=== PATIENT | female | born 1980 | race Caucasian/White ===

== ENCOUNTER 2017-09-16 10:49 | Emergency (ER) | payer OTHER ==
[~2017-09-16] VITALS: Ht 160 cm; Wt 66.3 kg
[2017-09-16 10:50] VITALS: TEMP 36.7; Ht 160 cm; Wt 66.3 kg
[2017-09-16] MEDS ORDERED: MTR800 PO (11:08)
[2017-09-16] MEDS ORDERED: AMOX500T PO (11:08)
[2017-09-16] MEDS ORDERED: AMPICILLIN/SULBACTAM SOD INJ 3,000 MG in SODIUM CHLORIDE 0.9% 100ML 100 ML IV STA (11:14)
[2017-09-16] MEDS ORDERED: KETOROLAC TROMETHAMINE 30 MG/ML VIAL IV STA (11:26)
[2017-09-16 11:42] LABS: BASO % 0.2 %; BASO ABS # 0.02 K/uL (0-0.2); COMPLETE YES; EOS % 0.3 %; HEMATOCRIT 45.8 % (37-47); IG% 0.2 %; LYMPH % 4.9 %; LYMPH ABS # 0.44 K/uL (1.2-3.4); MEAN CELL VOLUME 92.2 fL (80-100); MEAN CORPUSCULAR HEMOGLOBIN 32.4 pg (25-34); MEAN CORPUSCULAR HGB CONC 35.2 g/dl (32-36); MEAN PLATELET VOLUME 9.9 fL (7.4-10.4); MONO % 5.7 %; NEUT % 88.7 %; PLATELET COUNT 146 K/uL (130-400); RED BLOOD COUNT 4.97 M/uL (4.2-5.4); WHITE BLOOD COUNT 9.01 K/uL (4.8-10.8)
[2017-09-16 12:00] LABS: BUN/CREATININE RATIO 13.9 (10-20); CALCIUM 9.1 mg/dl (8.5-10.1); CREATININE 0.68 mg/dl (0.60-1.20); POTASSIUM 3.5 mmol/L (3.5-5.1)
[2017-09-16 13:09] VITALS: BP 119/72; PULSE 80; O2SAT 97
--- NOTE | 2017-09-16 15:19 | EMERGENCY ROOM VISIT NOTE ---
History First contact with patient: 11:05 Chief Complaint: DENTAL PAIN Stated Complaint: ABCESS TOOTH, SEVERE PAIN, SWELLING SPEADING Nursing Triage Summary: started on abx 1 day ago for dental abcess today swelling seems to have increased History of Present Illness The patient is a 36 year old female who presents to the Emergency Room with complaints of progressively worsening right lower jaw swelling. The patient reports that she noticed dental pain on Tuesday morning. She reports that she had a filling fall out several months ago, and never got it repaired. By Tuesday, she noticed worsening pain. Yesterday morning, she then started to develop swelling. She was seen at [facility] by Dr. Romero and provided a prescription for Augmentin 500 mg twice daily. The patient has taken 3 doses of the Augmentin, and reports that the swelling is worse. She also felt feverish yesterday. She did not check an oral temperature. She has taken Tylenol every 8-10 hours. The patient reports that the dentist told her to come to the emergency department with any progressively worsening swelling. The patient rates her discomfort a 5 out of 10. Review of Systems HEENT: Denies dizziness, visual problems, hearing loss, tinnitus. Denies difficulty swallowing or oral lesions. PULMONARY: Denies cough, shortness of breath, sputum production or hemoptysis. CARDIOVASCULAR: Denies chest pain, palpitations, dyspnea on exertion, orthopnea or peripheral edema. GASTROINTESTINAL: Denies diarrhea, constipation, nausea, vomiting, or abdominal pain. GENITOURINARY: Denies dysuria, frequency, urgency or nocturia. NEUROLOGIC: Denies history of epilepsy, CVA, TIA or chronic headaches. MUSCULOSKELETAL: Denies history of joint tenderness/swelling. SKIN: Denies rashes or lesions. PSYCHIATRIC: Denies history of depression or mental illness. ENDOCRINE: Denies history of diabetes or thyroid disorders. Past Medical/Surgical History Medical Problems: (1) Pneumonia Surgical Problems: (1) No history of previous surgery Family History FH: kidney disease Social History Smoking Status: Current Every Day Smoker Alcohol Use: occasionally Marital Status: single Housing Status: lives with roommate Occupation Status: employed Current/Historical Medications Scheduled Amoxicillin & Pot Clavulanate (Augmentin 500MG), 500 MG PO TID Scheduled PRN Ibuprofen (Ibuprofen), 800 MG PO Q8 PRN for Pain Physical Exam Vital Signs Date Time Temp Pulse Resp B/P (MAP) Pulse Ox O2 Delivery O2 Flow Rate FiO2 09/16/17 13:09 80 18 119/72 97 09/16/17 10:50 36.7 100 20 122/83 98 Room Air Physical Exam CONSTITUTIONAL: Healthy and well nourished. Alert and oriented X 3 with positive affect. She does not appear acutely ill or toxic, nor does she appear in any acute distress. HEENT: Normocephalic, atraumatic. Pupils equal, round and reactive. No facial erythema noted. OROPHARYNX: Examination shows notable right mandibular gingival erythema and edema without obvious pointing or focal fluctuance. The patient does have mild right submandibular edema. LYMPHATICS: Patient has mild right submandibular adenopathy. No cervical chain adenopathy. NECK: Full active range of motion without discomfort. RESPIRATORY: Clear to auscultation bilaterally with no wheezing, crackles, rhonchi or stridor. CARDIOVASCULAR: Regular rate and rhythm with no murmurs, rubs or gallops. INTEGUMENTARY: No rash or other significant dermatologic conditions noted. NEUROLOGIC: No focal neurologic deficits noted. Facial sensations are intact. Medical Decision & Procedures Laboratory Results 09/16/17 11:29 Red Blood Count 4.97, Mean Corpuscular Volume 92.2, Mean Corpuscular Hemoglobin 32.4, Mean Corpuscular Hemoglobin Concent 35.2, Mean Platelet Volume 9.9, Neutrophils (%) (Auto) 88.7, Lymphocytes (%) (Auto) 4.9, Monocytes (%) (Auto) 5.7, Eosinophils (%) (Auto) 0.3, Basophils (%) (Auto) 0.2, Neutrophils # (Auto) 7.99, Lymphocytes # (Auto) 0.44, Monocytes # (Auto) 0.51, Eosinophils # (Auto) 0.03, Basophils # (Auto) 0.02 09/16/17 11:29 Test 09/16/17 11:29 White Blood Count 9.01 K/uL (4.8-10.8) Red Blood Count 4.97 M/uL (4.2-5.4) Hemoglobin 16.1 g/dL (12.0-16.0) Hematocrit 45.8 % (37-47) Mean Corpuscular Volume 92.2 fL (80-100) Mean Corpuscular Hemoglobin 32.4 pg (25-34) Mean Corpuscular Hemoglobin Concent 35.2 g/dl (32-36) Platelet Count 146 K/uL (130-400) Mean Platelet Volume 9.9 fL (7.4-10.4) Neutrophils (%) (Auto) 88.7 % Lymphocytes (%) (Auto) 4.9 % Monocytes (%) (Auto) 5.7 % Eosinophils (%) (Auto) 0.3 % Basophils (%) (Auto) 0.2 % Neutrophils # (Auto) 7.99 K/uL (1.4-6.5) Lymphocytes # (Auto) 0.44 K/uL (1.2-3.4) Monocytes # (Auto) 0.51 K/uL (0.11-0.59) Eosinophils # (Auto) 0.03 K/uL (0-0.5) Basophils # (Auto) 0.02 K/uL (0-0.2) RDW Standard Deviation 42.8 fL (36.4-46.3) RDW Coefficient of Variation 12.8 % (11.5-14.5) Immature Granulocyte % (Auto) 0.2 % Immature Granulocyte # (Auto) 0.02 K/uL (0.00-0.02) Anion Gap 8.0 mmol/L (3-11) Est Creatinine Clear Calc Drug Dose 106.6 ml/min Estimated GFR () 132.3 Estimated GFR (Non- 114.1 BUN/Creatinine Ratio 13.9 (10-20) Calcium Level 9.1 mg/dl (8.5-10.1) The above labs were reviewed and were grossly normal. Medications Administered Medications (Trade) Dose Ordered Sig/Preeti Route Start Time Stop Time Status Last Admin Dose Admin Ampicillin Sodium/ Sulbactam Sodium 3000 mg/Sodium Chloride 108 ml @ 200 mls/hr NOW STAT IV 09/16/17 11:14 09/16/17 11:46 DC 09/16/17 11:38 200 MLS/HR Ketorolac Tromethamine (Toradol Inj) 30 mg NOW STAT IV 09/16/17 11:26 09/16/17 11:27 DC 09/16/17 11:43 30 MG ED Course Patient history and physical exam were performed. Nurse's notes were reviewed. Vital signs were reviewed. The patient is currently afebrile. Heart rate is 100 and triage. Recheck in the room shows a heart rate of 90. The patient is normotensive. Exam is consistent with a dental abscess. Because the symptoms are worsening, I did suggest checking labwork and administering IV antibiotics. The patient was in agreement. IV access was established, and labs were drawn. Labs were reviewed and were grossly normal. The patient was administered Toradol 30 mg IVP, and Unasyn 3 g IV infusion. The patient reported improvement of her pain. The patient was encouraged to continue with her Augmentin antibiotics. She may alternate ibuprofen and Tylenol for pain and fever control. She was instructed to return to the emergency department over the weekend for any progressively worsening swelling, difficulty swallowing, worsening fever or other concerning symptoms. The patient was happy with plan of care, and voiced understanding of all discharge instructions, rating her discomfort a 3 out of 10 at the time of discharge. Medical Decision [place] Drug Monitoring Program Search Results: patient reviewed within database, no issues identified Medication Reconcilliation Current Medication List: was personally reviewed by me Blood Pressure Screening Patient's blood pressure: Normal blood pressure Impression Primary Impression: Dental abscess Departure Information Referrals No Doctor, Assigned (PCP) Patient Instructions My [facility]
[2017-09-17] MEDS ORDERED: DOXY1LIQ PO (09:44)
[2017-09-17] MEDS ORDERED: ACET-1256 PO (09:44)
[2017-09-18] MEDS ORDERED: CLC150 PO (18:19)
[2017-09-18] MEDS ORDERED: LCTX PO (19:07)
== END 2017-09-16 13:10 | disposition home or self-care (01) ==
LOC: C.EDB 10:50 → C.EDD 13:10
DX: K04.7 Periapical abscess without sinus (principal); Z87.01 Personal history of pneumonia (recurrent); Z84.1 Family history of disorders of kidney and ureter; F17.210 Nicotine dependence, cigarettes, uncomplicated

== ENCOUNTER 2017-09-17 09:33 | Inpatient (IN) | payer OTHER ==
[~2017-09-17] VITALS: Ht 160 cm; Wt 66.4 kg
[~2017-09-17 09:33] MED LIST: AMOX500T PO; MTR800 PO
[2017-09-17] MEDS ORDERED: DOXY1LIQ PO (09:44)
[2017-09-17] MEDS ORDERED: ACET-1256 PO (09:44)
[2017-09-17] MEDS ORDERED: CLINDAMYCIN IV 900 MG in DEXTROSE 5% 100ML 100 ML IV ONE (10:00)
[2017-09-17] MEDS ORDERED: OPTIRAY 320 IV PRN (10:15)
[2017-09-17 10:39] LABS: ISTAT CREATININE 0.5 mg/dl (0.6-1.3); ISTAT HEMOGLOBIN 13.9 g/dl (12.0-16.0); ISTAT IONIZED CALCIUM 1.2 mmol/l (1.12-1.32)
[2017-09-17 10:39] LABS: BASO % 0.3 %; BASO ABS # 0.02 K/uL (0-0.2); COMPLETE YES; EOS % 0.5 %; HEMATOCRIT 44.6 % (37-47); IG% 0.4 %; LYMPH % 9.8 %; LYMPH ABS # 0.78 K/uL (1.2-3.4); MEAN CELL VOLUME 92.5 fL (80-100); MEAN CORPUSCULAR HEMOGLOBIN 32.4 pg (25-34); MEAN PLATELET VOLUME 10.2 fL (7.4-10.4); MONO % 14.2 %; NEUT % 74.8 %; PLATELET COUNT 168 K/uL (130-400); RED BLOOD COUNT 4.82 M/uL (4.2-5.4); WHITE BLOOD COUNT 7.96 K/uL (4.8-10.8)
--- NOTE | 2017-09-17 11:05 | DIAGNOSTIC IMAGING REPORT ---
CT neck with intravenous contrast HISTORY: Right jaw pain. EVAL ABSCESS TECHNIQUE: Multiaxial CT images of the neck performed following use of intravenous contrast. COMPARISON STUDY: None. FINDINGS: The visualized brain parenchyma and orbits are unremarkable. Mild mucosal thickening within the right maxillary sinus. The lung apices are clear. The thyroid gland, submandibular glands, and parotid glands enhance normally. Mild right submandibular lymphadenopathy which is likely reactive. Prevertebral soft tissues and the epiglottis are normal in thickness. There is mild leftward shift of the hypopharynx. However, the airway remains intact. The major mucosal airway surfaces are maintained. There is a 6 mm periapical lucency at ADA 30. Peripheral enhancing fluid collection along the lingual surface of the mandible at this location. This also contains a small focus of gas. This is consistent with an abscess and measures 2.5 x 1.1 cm. This is best seen on image 117. This results in mild mass effect on the right sublingual space and there is associated inflammatory change at this location. Therefore, this raises the possibility of developing Uday's angina. IMPRESSION: 1. A 2.5 x 1.1 cm abscess abutting the lingual surface of the right hemimandible adjacent to the 6 mm periapical lucency at ADA 30. This results in mild mass effect at the right sublingual space with associated inflammatory change. Therefore, this raises the possibility of developing Uday's angina. 2. Right submandibular lymphadenopathy which is likely reactive. 3. Mild leftward shift of the hypopharynx. However, the airway remains intact. Electronically signed by: Ernie Hinds M.D. 09/17/2017 11:04 AM Dictated Date/Time: 09/17/2017 10:43 AM
[2017-09-17] MEDS ORDERED: KETOROLAC TROMETHAMINE 30 MG/ML VIAL IV STA (11:20)
[2017-09-17] MEDS ORDERED: ONDANSETRON INJ 2 MG/ML 2 ML VIAL IV STA (11:20)
[2017-09-17] MEDS ORDERED: MoRPHine SULFATE 4 MG/ML 1 ML CARP\\VIAL IV STA (11:20)
[2017-09-17] MEDS ORDERED: METRONIDAZOLE 500MG / 100ML NSS IV STA (11:39)
[2017-09-17] MEDS ORDERED: DEXAMETHASONE INJ 10 MG in SYRINGE 0 ML IV ONE (11:45)
--- NOTE | 2017-09-17 11:46 | EMERGENCY ROOM VISIT NOTE ---
ED Visit Note First contact with patient: 09:41 CHIEF COMPLAINT: Worsening dental infection 4 days HISTORY OF PRESENT ILLNESS: Patient is a 37-year-old white female who returns to the emergency department for worsening right-sided facial swelling secondary to a right lower dental abscess. Patient reports that she had a filling in the right lower molar that fell out several months ago, but she never got it repaired. She began to notice pain in the tooth on Tuesday, roughly 4 days ago. The pain progressively worsened, and she subsequently developed swelling in her cheek. , 2 days ago she was seen at [facility] and placed on Augmentin 500 mg 3 times a day. She states she's been taking the antibiotic as prescribed. She developed worsening facial swelling, and states the swelling past the midline of her jaw yesterday, which prompted her to come to the emergency department. She received IV Unasyn and Toradol at that time. Laboratory studies were unremarkable. Patient notes increasing swelling, states that the swelling is extending down her neck further, she has more pain with swallowing and difficulty opening her mouth. She has subjectively felt feverish and had sweats, but has been taking ibuprofen and Tylenol around-the- clock. She has not documented a fever since , temperature max at that time was 102.7F. She notes decreased oral intake due to pain and difficulty opening her mouth. She denies any drainage or discharge from the tooth. She rates her discomfort a 3/10 presently. REVIEW OF SYSTEMS:Review of systems as per HPI. All other systems reviewed were negative. 10 systems reviewed. PMH: Electronic medical records are reviewed and summarized as above/below. See Problem List. SOCIAL HISTORY: Patient lives at home with a roommate. Positive tobacco and alcohol use, does not specify the amounts. PHYSICAL EXAM: Vital Signs: Reviewed Nurse's notes. CONSTITUTIONAL: Patient is a well-appearing 37-year-old white female who is awake and alert and in no acute distress. She is handling her own secretions. There is no conversational dyspnea. EYES: Pupils equal, round, reactive to light and accommodation. EOMs intact without nystagmus. Sclera are anicteric. ENT: Tympanic membranes intact, with normal landmarks. External canals are clear. The patient is able to open her mouth slightly. Uvula is midline. She has an obvious cavity/defect in tooth #30, no focal gumline swelling, no drainable abscess appreciated. Mucous membranes are moist, no lesions, tongue and gums appear normal. FACE: The patient has swelling, fullness, warmth and induration of the right cheek, extending into the right submandibular/submental space, slight erythema is noted although no overt cellulitic changes are present. NECK: Supple, right-sided cervical chain lymphadenopathy. No thyromegaly. No meningeal signs. Full active range of motion without discomfort. CARDIOVASCULAR: Regular rate and rhythm, with normal S1 and S2, no murmur or gallop or rub is heard. No carotid bruits auscultated. No JVD. Peripheral pulses easily palpable. RESPIRATORY: Breath sounds equal and clear to auscultation without wheezes, rales, or rhonchi heard. Full and equal chest expansion without accessory muscle use or retractions. INTEGUMENTARY: No lesions or rash, normal skin turgor. EMERGENCY DEPARTMENT COURSE: Patient was seen and assessed as above. Her old records were reviewed. IV lock was initiated. CBC and i-STAT BMP were drawn. She was given clindamycin 900 mg IV. Given her worsening symptoms, despite appropriate antibiotic therapy, CT scan of the soft tissue of the neck with IV contrast was obtained. Findings are noted below. Her white count is normal. Patient was reviewed with attending physician, and I did discuss the patient with Dr. Esqueda from [facility]. He suggested a dose of Decadron IV, 8 - 10 mg, and the addition of Flagyl for Prevotella coverage. He was in agreement with the clindamycin. [facility]. Medication reconciliation: I attest that I have personally reviewed the patient' s current medication list. Blood pressure screening : Patient was found to have normal blood pressure on screening and does not require follow-up. Differential diagnosis includes facial cellulitis, abscess, Uday's angina, among others. CT neck with intravenous contrast HISTORY: Right jaw pain. EVAL ABSCESS TECHNIQUE: Multiaxial CT images of the neck performed following use of intravenous contrast. COMPARISON STUDY: None. FINDINGS: The visualized brain parenchyma and orbits are unremarkable. Mild mucosal thickening within the right maxillary sinus. The lung apices are clear. The thyroid gland, submandibular glands, and parotid glands enhance normally. Mild right submandibular lymphadenopathy which is likely reactive. Prevertebral soft tissues and the epiglottis are normal in thickness. There is mild leftward shift of the hypopharynx. However, the airway remains intact. The major mucosal airway surfaces are maintained. There is a 6 mm periapical lucency at ADA 30. Peripheral enhancing fluid collection along the lingual surface of the mandible at this location. This also contains a small focus of gas. This is consistent with an abscess and measures 2.5 x 1.1 cm. This is best seen on image 117. This results in mild mass effect on the right sublingual space and there is associated inflammatory change at this location. Therefore, this raises the possibility of developing Uday's angina. IMPRESSION: 1. A 2.5 x 1.1 cm abscess abutting the lingual surface of the right hemimandible adjacent to the 6 mm periapical lucency at ADA 30. This results in mild mass effect at the right sublingual space with associated inflammatory change. Therefore, this raises the possibility of developing Uday's angina. 2. Right submandibular lymphadenopathy which is likely reactive. 3. Mild leftward shift of the hypopharynx. However, the airway remains intact. Problem List Medical Problems: (1) Dental abscess Status: Resolved (2) Dental abscess Status: Resolved (3) Pneumonia Status: Resolved Surgical Problems: (1) No history of previous surgery Status: Resolved Current/Historical Medications Scheduled Amoxicillin & Pot Clavulanate (Augmentin 500MG), 500 MG PO TID Scheduled PRN Acetaminophen (Tylenol), 1,000 MG PO Q4 PRN for Pain Doxylamine-Dm (Vicks Dayquil/Nyquil Coug), 1 DOSE PO HS PRN for Cough Ibuprofen (Ibuprofen), 800 MG PO Q8 PRN for Pain Allergies Coded Allergies: No Known Allergies (Unverified , 09/17/17) Vital Signs Date Time Temp Pulse Resp B/P (MAP) Pulse Ox O2 Delivery O2 Flow Rate FiO2 09/17/17 10:52 88 16 113/72 97 Room Air 09/17/17 09:37 37.1 87 16 110/65 97 Room Air Laboratory Results 09/17/17 10:15 Red Blood Count 4.82, Mean Corpuscular Volume 92.5, Mean Corpuscular Hemoglobin 32.4, Mean Corpuscular Hemoglobin Concent 35.0, Mean Platelet Volume 10.2, Neutrophils (%) (Auto) 74.8, Lymphocytes (%) (Auto) 9.8, Monocytes (%) (Auto) 14.2, Eosinophils (%) (Auto) 0.5, Basophils (%) (Auto) 0.3, Neutrophils # (Auto ) 5.96, Lymphocytes # (Auto) 0.78, Monocytes # (Auto) 1.13, Eosinophils # (Auto ) 0.04, Basophils # (Auto) 0.02 Test 09/17/17 10:15 09/17/17 10:27 White Blood Count 7.96 K/uL (4.8-10.8) Red Blood Count 4.82 M/uL (4.2-5.4) Hemoglobin 15.6 g/dL (12.0-16.0) Hematocrit 44.6 % (37-47) Mean Corpuscular Volume 92.5 fL (80-100) Mean Corpuscular Hemoglobin 32.4 pg (25-34) Mean Corpuscular Hemoglobin Concent 35.0 g/dl (32-36) Platelet Count 168 K/uL (130-400) Mean Platelet Volume 10.2 fL (7.4-10.4) Neutrophils (%) (Auto) 74.8 % Lymphocytes (%) (Auto) 9.8 % Monocytes (%) (Auto) 14.2 % Eosinophils (%) (Auto) 0.5 % Basophils (%) (Auto) 0.3 % Neutrophils # (Auto) 5.96 K/uL (1.4-6.5) Lymphocytes # (Auto) 0.78 K/uL (1.2-3.4) Monocytes # (Auto) 1.13 K/uL (0.11-0.59) Eosinophils # (Auto) 0.04 K/uL (0-0.5) Basophils # (Auto) 0.02 K/uL (0-0.2) RDW Standard Deviation 43.3 fL (36.4-46.3) RDW Coefficient of Variation 12.8 % (11.5-14.5) Immature Granulocyte % (Auto) 0.4 % Immature Granulocyte # (Auto) 0.03 K/uL (0.00-0.02) Bedside Hemoglobin 13.9 g/dl (12.0-16.0) Bedside Hematocrit 41 % (37-47) Bedside Sodium 139 mEq/L (135-144) Bedside Potassium 3.8 mEq/L (3.3-5.0) Bedside Chloride 99 mEq/L (101-112) Bedside Total CO2 28 mEq/l (24-31) Anion Gap 17.0 mmol/L (16-25) Bedside Blood Urea Nitrogen 6 mg/dl (7-18) Bedside Creatinine 0.5 mg/dl (0.6-1.3) Bedside Glucose (other) 106 mg/dl (70-99) Bedside Ionized Calcium (Barbara) 1.20 mmol/l (1.12-1.32) Medications Administered Medications (Trade) Dose Ordered Sig/Preeti Route Start Time Stop Time Status Last Admin Dose Admin Clindamycin Phosphate 900 mg/ Dextrose 106 ml @ 100 mls/hr ONE ONCE IV 09/17/17 10:00 09/17/17 11:03 DC 09/17/17 10:48 100 MLS/HR Ketorolac Tromethamine (Toradol Inj) 30 mg NOW STAT IV 09/17/17 11:20 09/17/17 11:21 DC 09/17/17 11:38 30 MG Morphine Sulfate (MoRPHine SULFATE INJ) 4 mg NOW STAT IV 09/17/17 11:20 09/17/17 11:22 DC 09/17/17 11:37 4 MG Ondansetron HCl (Zofran Inj) 4 mg NOW STAT IV 09/17/17 11:20 09/17/17 11:22 DC 09/17/17 11:36 4 MG Dexamethasone Sodium Phosphate 10 mg/Syringe 2.5 ml @ 1 mls/min NOW ONCE IV 09/17/17 11:45 09/17/17 11:47 DC 09/17/17 12:03 1 MLS/MIN Metronidazole (Flagyl / Nss) 500 mg NOW STAT IV 09/17/17 11:39 09/17/17 11:40 DC 09/17/17 12:03 500 MG Departure Information Impression Primary Impression: Dental abscess Additional Impression: Facial cellulitis Dispostion Being Evaluated By Hospitalist Referrals No Doctor, Assigned (PCP) Patient Instructions My [facility] Problem Qualifiers
[2017-09-17] MEDS ORDERED: ONDANSETRON INJ 2 MG/ML 2 ML VIAL IV PRN (12:30)
[2017-09-17] MEDS ORDERED: ALUMINUM/MAGNESIUM/SIMETH (MAALOX MAX) 30 ML UDC PO PRN (12:30)
[2017-09-17] MEDS ORDERED: ACETAMINOPHEN 325 MG TAB PO PRN (12:30)
[2017-09-17 13:45] VITALS: O2SAT 97
[2017-09-17] MEDS: SODIUM CHLORIDE 0.9% 1000ML 1,000 ML IV SCH ×2 (14:22→21:08)
[2017-09-17 14:25] VITALS: BP 104/63; PULSE 75; TEMP 36.9; Ht 160 cm; Wt 66.4 kg
[2017-09-17] MEDS ORDERED: CLINDAMYCIN IV 600 MG in DEXTROSE 5% 50ML 50 ML IV SCH (14:30)
--- NOTE | 2017-09-17 16:26 | HISTORY & PHYSICAL EXAMINATION ---
DATE OF ADMISSION: 09/17/2017 CHIEF COMPLAINT: Right facial cellulitis and dental abscess. HISTORY OF PRESENT ILLNESS: This is a 37-year-old female with no significant past medical history, presents with dental abscess and right-sided facial cellulitis. The patient says her right tooth filling has come off couple of months ago, but she did not see the dentist.About 4-5 days ago, she noticed pain in the right tooth, which progressively worsened and also swelling in the right cheek. On , 2 days ago, she went to her dentist and was placed on amoxicillin 500 mg 3 times daily, but it did not get better and swelling got worse and she came to the ER yesterday. She was given a dose of IV Unasyn and was sent home, and the patient was also having temperature at home and some runny nose and cough without phlegm for a couple of days. Since it was not getting better, she came back to the ER today and CAT scan done in the ER shows possible Uday's angina with abscess.So the ER physician called the dental surgeon correctional supervisor lieutenant and advised to place on clindamycin and Flagyl and monitor and not a surgical candidate at this time. The patient currently denies any shortness of breath. Denies any difficulty swallowing, has some sore throat from her condition. Had some headache yesterday, but no headache now. No dizziness. No blurred vision. No ringing noise in the ears. No difficulty swallowing. No chest pain. No shortness of breath. Has some cough. No phlegm. No nausea. No vomiting. No abdominal pain. Some diarrhea since she was started on antibiotics. No swelling in the legs. Ambulating okay. Currently resting comfortably and hemodynamically stable. ALLERGIES: No known drug allergies. PAST MEDICAL HISTORY: Nothing significant. PAST SURGICAL HISTORY: None. MEDICATIONS: [id number] ibuprofen and Tylenol p.r.n. FAMILY HISTORY: Denies any significant family history. SOCIAL HISTORY: Smokes couple of cigarettes a day for 10 years. Alcohol occasionally. Denies any current drug abuse. REVIEW OF SYMPTOMS: As per HPI. Rest of the review of symptoms negative. PHYSICAL EXAMINATION: VITAL SIGNS: Temperature 37.1, pulse 88, respiratory rate 16, blood pressure 113/72, oxygen 97% on room air. HEENT: No pallor. No icterus. Oral mucosa, cannot open the mouth fully. Some swelling seen in the right submandibular region. Also, swelling in the right side of the face extending into the right side of the neck. CARDIOVASCULAR: S1, S2 heard. Regular rate and rhythm. No murmur. No gallop. RESPIRATORY SYSTEM: Clear to auscultation bilaterally. No wheezing. No crackles. ABDOMEN: Soft, bowel sounds present. Nontender. No distention. CENTRAL NERVOUS SYSTEM: Cranial nerves II-XII grossly intact. Nonfocal. EXTREMITIES: No edema. No erythema. LABORATORY DATA: WBC 7.9, hemoglobin 13.9, hematocrit 41, and platelets 168. Sodium 139, potassium 3.8, chloride 99, bicarbonate 28, BUN 6, creatinine 0.5, serum glucose 106, ionized calcium 1.2. IMAGING STUDIES: CT neck, 2.5 x 1.5 cm abscess abutting the lingual surface of the right hemimandible adjacent to 6 mm periapical lucency . This results in mild mass effect at the right sublingual space, associated inflammatory change. Therefore, this raises the possibility of developing Uday's angina, right submandibular lymphadenopathy, which is likely reactive. Mild leftward shift of the hypopharynx; however, the airway remains intact. ASSESSMENT AND PLAN: This is a 37-year-old female, who presents with dental abscess with possible developing Uday's angina. 1. Dental abscess, possible Uday's angina and failed outpatient treatment to oral antibiotics. The ER physician discussed the case with Dr. Esqueda. Recommend to start on IV clindamycin and Flagyl. If not improved, we will consult Dental Surgery. We will place on IV Decadron 4 mg t.i.d., IV Toradol p.r.n., IV fluids, mechanical soft diet for now and monitor in the medical floor. 2. Deep vein thrombosis prophylaxis, SCDs and TEDs. DISPOSITION: Admit to medical floor. Expect to discharge home and follow with Dental surgeon and family doctor. Level 1, full code. MTDD
[2017-09-17] MEDS: CLINDAMYCIN IV 600 MG in DEXTROSE 5% 50ML 50 ML IV SCH (17:41)
[2017-09-17] MEDS: METRONIDAZOLE / NSS 500 MG in PREMIXED NSS 100 ML IV SCH (20:57)
[2017-09-17] MEDS: KETOROLAC TROMETHAMINE 30 MG/ML VIAL IV PRN (21:03)
[2017-09-17] MEDS: DEXAMETHASONE INJ 4 MG in SYRINGE 0 ML IV SCH (21:11)
[2017-09-17 23:12] VITALS: BP 119/68; PULSE 82; TEMP 36.9; O2SAT 96
[2017-09-18] MEDS: CLINDAMYCIN IV 600 MG in DEXTROSE 5% 50ML 50 ML IV SCH ×3 (01:58→17:49)
[2017-09-18] MEDS: METRONIDAZOLE / NSS 500 MG in PREMIXED NSS 100 ML IV SCH ×2 (04:27→11:55)
[2017-09-18 06:46] VITALS: BP 122/70; PULSE 80; TEMP 36.5; O2SAT 96
[2017-09-18 06:57] LABS: BASO % 0.2 %; BASO ABS # 0.02 K/uL (0-0.2); COMPLETE YES; HEMATOCRIT 38.9 % (37-47); IG% 0.3 %; LYMPH % 7.5 %; LYMPH ABS # 0.89 K/uL (1.2-3.4); MEAN CELL VOLUME 91.7 fL (80-100); MEAN CORPUSCULAR HEMOGLOBIN 31.8 pg (25-34); MEAN CORPUSCULAR HGB CONC 34.7 g/dl (32-36); MEAN PLATELET VOLUME 10.4 fL (7.4-10.4); MONO % 8.6 %; NEUT % 83.4 %; PLATELET COUNT 176 K/uL (130-400); RED BLOOD COUNT 4.24 M/uL (4.2-5.4); WHITE BLOOD COUNT 11.83 K/uL (4.8-10.8)
[2017-09-18 07:24] LABS: BLOOD UREA NITROGEN 5 mg/dl (7-18); BUN/CREATININE RATIO 12.8 (10-20); CALCIUM 8.6 mg/dl (8.5-10.1); CARBON DIOXIDE 24 mmol/L (21-32); CHLORIDE 106 mmol/L (98-107); CREATININE 0.39 mg/dl (0.60-1.20); GLUCOSE 130 mg/dl (70-99); MAGNESIUM 2.1 mg/dl (1.8-2.4); SODIUM 137 mmol/L (136-145)
[2017-09-18] MEDS: SODIUM CHLORIDE 0.9% 1000ML 1,000 ML IV SCH (07:41)
[2017-09-18] MEDS: KETOROLAC TROMETHAMINE 30 MG/ML VIAL IV PRN ×2 (08:02→20:36)
[2017-09-18] MEDS: DEXAMETHASONE INJ 4 MG in SYRINGE 0 ML IV SCH ×3 (08:33→20:36)
[2017-09-18 15:48] VITALS: BP 138/91; PULSE 83; TEMP 37; O2SAT 96
--- NOTE | 2017-09-18 17:01 | Progress Note ---
Internal Med Progress Note Date of Service: Sep 18, 2017. Provider Documentation: SUBJECTIVE: No fever or chills pain and swelling on rt face and oral cavity area improved able to eat solid food hoping to be discharged home tomorrow OBJECTIVE: Vital Signs-as noted below Exam: General-well appearing , no sign of distress Eyes-sclera non icteric , PERRLA/EOMI ENT-mild tenderness on rt cheek area , not adequate exam as pt still could not open mouth wide open no overt exudate noted on rt oropharynx area Neck-no thyromegaly , trachea midline Lungs-CTA ,no wheeze or rales Heart-regular S1/S2 Abdomen-soft, non tender Extremities-no lower ext edema Neuro-AAO x3, no focal deficit Lab data as noted below. ASSESSMENT & PLAN: 1. Dental abscess: failed out pt tx with oral Augmentin CT of soft tissue neck : A 2.5 x 1.1 cm abscess abutting the lingual surface of the right hemimandible adjacent to the 6 mm periapical lucency at ADA 30. This results in mild mass effect at the right sublingual space with associated inflammatory change. Therefore, this raises the possibility of developing Uday's angina. Uday's angina and failed outpatient treatment ENT Dr Esqueda was updated by ER physician on admission -pt is continued with IV IV clindamycin and Flagyl. -clinically improved D/w ID -will transition to PO Clindamycin will need 7-10 days of tx D/C IV Flagyl will need Dental Surgery/ENT follow up for drainage of abscess after completion of Abx DVT PROPHYLAXIS SCD and teds ambulate DISPOSITION expected to be discharged home tomorrow will follow up with Dentist /dental surgery for definitive treatment of infected tooth /dental abscess Vital Signs: Date Time Temp Pulse Resp B/P (MAP) Pulse Ox O2 Delivery O2 Flow Rate FiO2 09/18/17 16:00 Room Air 09/18/17 15:48 37.0 83 18 138/91 (107) 96 Room Air 09/18/17 08:00 Room Air 09/18/17 06:46 36.5 80 20 122/70 (87) 96 Room Air 09/18/17 00:00 Room Air 09/17/17 23:12 36.9 82 16 119/68 (85) 96 Room Air Lab Results: Results Past 24 Hours Test 09/18/17 06:24 Range/Units White Blood Count 11.83 4.8-10.8 K/uL Red Blood Count 4.24 4.2-5.4 M/uL Hemoglobin 13.5 12.0-16.0 g/dL Hematocrit 38.9 37-47 % Mean Corpuscular Volume 91.7 80-100 fL Mean Corpuscular Hemoglobin 31.8 25-34 pg Mean Corpuscular Hemoglobin Concent 34.7 32-36 g/dl Platelet Count 176 130-400 K/uL Mean Platelet Volume 10.4 7.4-10.4 fL Neutrophils (%) (Auto) 83.4 % Lymphocytes (%) (Auto) 7.5 % Monocytes (%) (Auto) 8.6 % Eosinophils (%) (Auto) 0.0 % Basophils (%) (Auto) 0.2 % Neutrophils # (Auto) 9.87 1.4-6.5 K/uL Lymphocytes # (Auto) 0.89 1.2-3.4 K/uL Monocytes # (Auto) 1.02 0.11-0.59 K/uL Eosinophils # (Auto) 0.00 0-0.5 K/uL Basophils # (Auto) 0.02 0-0.2 K/uL RDW Standard Deviation 42.5 36.4-46.3 fL RDW Coefficient of Variation 12.7 11.5-14.5 % Immature Granulocyte % (Auto) 0.3 % Immature Granulocyte # (Auto) 0.03 0.00-0.02 K/uL Sodium Level 137 136-145 mmol/L Potassium Level 4.0 3.5-5.1 mmol/L Chloride Level 106 98-107 mmol/L Carbon Dioxide Level 24 21-32 mmol/L Anion Gap 7.0 3-11 mmol/L Blood Urea Nitrogen 5 7-18 mg/dl Creatinine 0.39 0.60-1.20 mg/dl Est Creatinine Clear Calc Drug Dose 184.3 ml/min Estimated GFR () > 150.0 Estimated GFR (Non- 136.1 BUN/Creatinine Ratio 12.8 10-20 Random Glucose 130 70-99 mg/dl Calcium Level 8.6 8.5-10.1 mg/dl Magnesium Level 2.1 1.8-2.4 mg/dl
[2017-09-18] MEDS ORDERED: CLC150 PO (18:19)
[2017-09-18] MEDS ORDERED: LCTX PO (19:07)
--- NOTE | 2017-09-18 19:07 | Discharge Instructions ---
Discharge Instructions Date of Service Sep 18, 2017. Admission Reason for Admission: Dental Abcess,Facial Cellulitis Discharge Discharge Diagnosis / Problem: DENTAL ABSCES/FACIAL CELLULITIS Discharge Goals Goal(s): Decrease discomfort, Improve function, Increase independence, Improve disease control, Diagnostic testing, Therapeutic intervention Activity Recommendations Activity Limitations: resume your previous activity . Instructions / Follow-Up Instructions / Follow-Up FOLLOW UP WITH DENTAL SURGERY FOR DEFINITIVE MANAGEMENT OF DENTAL ABSCESS COMPLETE ANTIBIOTIC DOSE INSTRUCTED Current Hospital Diet Patient's current hospital diet: Regular Diet Discharge Diet Recommended Diet: Regular Diet Diet Texture: Mechanical Soft (ground) Pending Studies Studies pending at discharge: no Medical Emergencies . Who to Call and When: Medical Emergencies: If at any time you feel your situation is an emergency, please call 911 immediately. . Non-Emergent Contact Non-Emergency issues call your: Primary Care Provider, Specialist (DENTIS ) . . "Provider Documentation" section prepared by Chary Eldridge. . VTE Core Measure Inpt VTE Proph given/why not?: Fiorella Oliveros, SCD's
[2017-09-18 23:25] VITALS: BP 145/80; PULSE 64; TEMP 36.7; O2SAT 96
[2017-09-19] MEDS: CLINDAMYCIN HCL 150 MG CAP PO SCH ×3 (00:10→11:33)
[2017-09-19 06:43] LABS: BASO % 0.3 %; BASO ABS # 0.04 K/uL (0-0.2); COMPLETE YES; HEMATOCRIT 38.7 % (37-47); IG% 0.6 %; LYMPH % 12.3 %; LYMPH ABS # 1.87 K/uL (1.2-3.4); MEAN CELL VOLUME 91.1 fL (80-100); MEAN CORPUSCULAR HGB CONC 35.1 g/dl (32-36); MEAN PLATELET VOLUME 9.7 fL (7.4-10.4); MONO % 8.2 %; NEUT % 78.6 %; PLATELET COUNT 201 K/uL (130-400); RED BLOOD COUNT 4.25 M/uL (4.2-5.4); WHITE BLOOD COUNT 15.16 K/uL (4.8-10.8)
[2017-09-19 06:54] VITALS: BP 143/86; PULSE 70; TEMP 36.7; O2SAT 97
[2017-09-19] MEDS: KETOROLAC TROMETHAMINE 30 MG/ML VIAL IV PRN (07:06)
[2017-09-19 07:19] LABS: BLOOD UREA NITROGEN 10 mg/dl (7-18); BUN/CREATININE RATIO 25.9 (10-20); CALCIUM 8.9 mg/dl (8.5-10.1); CARBON DIOXIDE 24 mmol/L (21-32); CHLORIDE 105 mmol/L (98-107); CREATININE 0.39 mg/dl (0.60-1.20); GLUCOSE 116 mg/dl (70-99); MAGNESIUM 2.1 mg/dl (1.8-2.4); POTASSIUM 3.9 mmol/L (3.5-5.1); SODIUM 136 mmol/L (136-145)
[2017-09-19] MEDS: LACTOBACILLUS ACIDOPHILUS (FLORANEX) TAB PO SCH ×2 (07:31→11:33)
[2017-09-19] MEDS: DEXAMETHASONE INJ 4 MG in SYRINGE 0 ML IV SCH ×2 (08:51→13:17)
[2017-09-19] MEDS ORDERED: PANTOprazole SOD 40 MG TAB PO SCH (09:00)
[2017-09-19 15:04] VITALS: BP 143/86; PULSE 70; TEMP 36.7; O2SAT 97
--- NOTE | 2017-09-19 15:30 | Discharge Summary ---
Discharge Summary Date of Service Sep 19, 2017. Discharge Summary Admission Date: Sep 17, 2017 at 12:27 Discharge Date: Sep 19, 2017 Discharge Disposition: Home Principal Diagnosis: DENTAL ABSCESS/FACIAL CELLULITIS Procedures: CT OF SOFT TISSUE NECK WITH IV CONTRAST : IMPRESSION: 1. A 2.5 x 1.1 cm abscess abutting the lingual surface of the right hemimandible adjacent to the 6 mm periapical lucency at ADA 30. This results in mild mass effect at the right sublingual space with associated inflammatory change. Therefore, this raises the possibility of developing Uday's angina. 2. Right submandibular lymphadenopathy which is likely reactive. 3. Mild leftward shift of the hypopharynx. However, the airway remains intact. Medication Reconciliation New Medications: Clindamycin HCl (Clindamycin HCl) 150 Mg Cap 300 MG PO Q6 for 7 Days, #56 CAP Lactobacillus Acidophilus (Lactinex) Tab 1 TAB PO TIDM for 10 Days, #30 TAB Continued Medications: Acetaminophen (Tylenol) 500 Mg Tab 1000 MG PO Q4 PRN for Pain, TAB Doxylamine-Dm (Vicks Dayquil/Nyquil Coug) 1 Liq Liq 1 DOSE PO HS PRN for Cough Ibuprofen (Ibuprofen) 800 Mg Tab 800 MG PO Q8 PRN for Pain Discontinued Medications: Amoxicillin & Pot Clavulanate (Augmentin 500MG) 1 Tab Tab 500 MG PO TID Admission Information HPI (per Admitting provider): DATE OF ADMISSION: 09/17/2017 CHIEF COMPLAINT: Right facial cellulitis and dental abscess. HISTORY OF PRESENT ILLNESS: This is a 37-year-old female with no significant past medical history, presents with dental abscess and right-sided facial cellulitis. The patient says her right tooth filling has come off couple of months ago, but she did not see the dentist.About 4-5 days ago, she noticed pain in the right tooth, which progressively worsened and also swelling in the right cheek. On , 2 days ago, she went to her dentist and was placed on amoxicillin 500 mg 3 times daily, but it did not get better and swelling got worse and she came to the ER yesterday. She was given a dose of IV Unasyn and was sent home, and the patient was also having temperature at home and some runny nose and cough without phlegm for a couple of days. Since it was not getting better, she came back to the ER today and CAT scan done in the ER shows possible Uday's angina with abscess.So the ER physician called the dental surgeon teacher adult education and advised to place on clindamycin and Flagyl and monitor and not a surgical candidate at this time. The patient currently denies any shortness of breath. Denies any difficulty swallowing, has some sore throat from her condition. Had some headache yesterday, but no headache now. No dizziness. No blurred vision. No ringing noise in the ears. No difficulty swallowing. No chest pain. No shortness of breath. Has some cough. No phlegm. No nausea. No vomiting. No abdominal pain. Some diarrhea since she was started on antibiotics. No swelling in the legs. Ambulating okay. Currently resting comfortably and hemodynamically stable. ALLERGIES: No known drug allergies. PAST MEDICAL HISTORY: Nothing significant. PAST SURGICAL HISTORY: None. MEDICATIONS: Izls-iza-uwezaky ibuprofen and Tylenol p.r.n. FAMILY HISTORY: Denies any significant family history. SOCIAL HISTORY: Smokes couple of cigarettes a day for 10 years. Alcohol occasionally. Denies any current drug abuse. REVIEW OF SYMPTOMS: As per HPI. Rest of the review of symptoms negative. Physical Exam (per Admitting): PHYSICAL EXAMINATION: VITAL SIGNS: Temperature 37.1, pulse 88, respiratory rate 16, blood pressure 113/72, oxygen 97% on room air. HEENT: No pallor. No icterus. Oral mucosa, cannot open the mouth fully. Some swelling seen in the right submandibular region. Also, swelling in the right side of the face extending into the right side of the neck. CARDIOVASCULAR: S1, S2 heard. Regular rate and rhythm. No murmur. No gallop. RESPIRATORY SYSTEM: Clear to auscultation bilaterally. No wheezing. No crackles. ABDOMEN: Soft, bowel sounds present. Nontender. No distention. CENTRAL NERVOUS SYSTEM: Cranial nerves II-XII grossly intact. Nonfocal. EXTREMITIES: No edema. No erythema. Hospital Course pain and swelling on rt mandible and face much improved no fever or chills not having any trouble swallowing solid food stable to be discharged home today PHYSICAL EXAM: Exam: General-well appearing , no sign of distress Eyes-sclera non icteric , PERRLA/EOMI ENT-improved swelling on rt check , minimum tenderness able to open mouth better than yesterday no overt exudate noted on rt oropharynx area Neck-no thyromegaly , trachea midline Lungs-CTA ,no wheeze or rales Heart-regular S1/S2 Abdomen-soft, non tender Extremities-no lower ext edema Neuro-AAO x3, no focal deficit Last 8 Hrs Date Time Temp Pulse Resp B/P (MAP) Pulse Ox O2 Delivery O2 Flow Rate FiO2 09/19/17 15:04 36.7 70 18 97 Room Air 09/19/17 08:00 Room Air ASSESSMENT AND PLAN : 1. Dental abscess: Presented with complain of pain and swelling on rt tooth and gum area associated with swelling of rt side of face failed out pt tx with oral Augmentin CT of soft tissue neck : A 2.5 x 1.1 cm abscess abutting the lingual surface of the right hemimandible adjacent to the 6 mm periapical lucency at ADA 30. This results in mild mass effect at the right sublingual space with associated inflammatory change. Therefore, this raises the possibility of developing Uday's angina. Uday's angina and failed outpatient treatment ENT Dr Esqueda was updated by ER physician on admission -pt was treated with IV clindamycin and Flagyl. -clinically improved D/w ID -will transition to PO Clindamycin will need 7-10 days of tx stable to be discharged home today pt will have Dental Surgery follow up for drainage of abscess after completion of Abx DVT PROPHYLAXIS SCD and teds ambulate DISPOSITION stable to be discharged today will follow up with Dentist /dental surgery for definitive treatment of infected tooth /dental abscess Total time spent on discharge = 35 mins This includes examination of the patient, discharge planning, medication reconciliation, and communication with other providers. Discharge Instructions Discharge Instructions Date of Service Sep 18, 2017. Admission Reason for Admission: Dental Abcess,Facial Cellulitis Discharge Discharge Diagnosis / Problem: DENTAL ABSCESS/FACIAL CELLULITIS Discharge Goals Goal(s): Decrease discomfort, Improve function, Increase independence, Improve disease control, Diagnostic testing, Therapeutic intervention Activity Recommendations Activity Limitations: resume your previous activity . Instructions / Follow-Up Instructions / Follow-Up FOLLOW UP WITH DENTAL SURGERY FOR DEFINITIVE MANAGEMENT OF DENTAL ABSCESS COMPLETE ANTIBIOTIC DOSE INSTRUCTED Current Hospital Diet Patient's current hospital diet: Regular Diet Discharge Diet Recommended Diet: Regular Diet Diet Texture: Mechanical Soft (ground) Pending Studies Studies pending at discharge: no Medical Emergencies . Who to Call and When: Medical Emergencies: If at any time you feel your situation is an emergency, please call 911 immediately. . Non-Emergent Contact Non-Emergency issues call your: Primary Care Provider, Specialist (DENTIS ) . . "Provider Documentation" section prepared by Chary Eldridge. . VTE Core Measure Inpt VTE Proph given/why not?: Fiorella Oliveros, JEAN's
== END 2017-09-19 15:29 | disposition home or self-care (01) | DRG 158 ==
LOC: C.EDB 09:34 → C.MS2W 12:27 → ENRESERV 13:16
PROVIDERS: ADMIT Hospitalist; ATTEND Hospitalist
DX: K12.2 Cellulitis and abscess of mouth (principal); L03.211 Cellulitis of face; F17.210 Nicotine dependence, cigarettes, uncomplicated